=== PATIENT | female | born 1995 | race Caucasian/White ===

== ENCOUNTER 2020-05-14 15:00 | Outpatient (REF) | payer MEDICAID, SELFPAY ==
[2020-05-14 15:04] LABS: Abs Immature Grans 0.04 10^3/uL (0.0-0.06); Absolute Basophil Count 0.04 10^3/uL (0.0-0.2); Absolute Eosinophil Count 1.97 10^3/uL (0.0-0.7); Absolute Lymphocyte Count 0.58 10^3/uL (1.2-3.4); Absolute Monocyte Count 0.56 10^3/uL (0.1-0.8); Absolute Neutrophil Count 3.49 10^3/uL (1.2-6.7); Basophils % 0.6; Eosinophils % 29.5; HCT 30.7 % (36.0-46.0); HGB 10.3 g/dL (11.2-15.7); Immature Grans % 0.6; Lymphocytes % 8.7; MCH 27.9 pg (27.0-33.0); MCHC 33.6 % (32.0-36.0); MCV 83.2 fL (80-95); MPV 10.5 fL (8.0-11.0); Monocytes % 8.4; Neutrophils % 52.2; Nucleated RBC 0 %; Platelet Count 269 10^3/uL (130-400); RBC 3.69 10^6/uL (3.93-5.22); RDW 14.4 % (11.7-14.6); RDW-SD 43.2 fL; WBC 6.68 10^3/uL (4.4-10.8)
[2020-05-14 15:39] LABS: ALT 16 U/L (14-59); AST 24 U/L (15-37); Albumin 2.1 g/dL (3.4-5.0); Alkaline Phosphatase 99 U/L (46-116); Anion Gap 5.6 mmol/L (3-11); BUN 11 mg/dL (7-18); Bilirubin, Total 0.4 mg/dL (0.2-1.0); CO2 30.4 mmol/L (21.0-32.0); CREATININE 0.62 mg/dL (0.55-1.02); Calcium 8.9 mg/dL (8.5-10.1); Chloride 99 mmol/L (98-107); Glucose 94 mg/dL (74-106); Potassium 3.1 mmol/L (3.5-5.1); Sodium 135 mmol/L (136-145)
== END 2020-05-14 15:20 ==
LOC: LBN 15:00
PROVIDERS: PCP Family Medicine; Visit Provider Family Medicine
DX: J85.2 Abscess of lung without pneumonia (principal)
CPT/HCPCS: 80053; 85025

== ENCOUNTER 2024-02-18 19:06 | Outpatient (REF) | payer MEDICAID, SELFPAY ==
[2024-02-18 19:38] LABS: Abs Immature Grans 0.02 10^3/uL (0.0-0.06); Absolute Basophil Count 0.02 10^3/uL (0.0-0.2); Absolute Eosinophil Count 0.13 10^3/uL (0.0-0.7); Absolute Lymphocyte Count 0.71 10^3/uL (1.2-3.4); Absolute Monocyte Count 0.51 10^3/uL (0.1-0.8); Absolute Neutrophil Count 1.62 10^3/uL (1.2-6.7); Basophils % 0.7 %; Eosinophils % 4.3 %; HCT 31.7 % (36.0-46.0); HGB 9.6 g/dL (11.2-15.7); Immature Grans % 0.7 %; Lymphocytes % 23.6 %; MCH 25.2 pg (27.0-33.0); MCHC 30.3 % (32.0-36.0); MCV 83 fL (80-95); MPV 10.2 fL (8.0-11.0); Monocytes % 16.9 %; Neutrophils % 53.8 %; Platelet Count 235 10^3/uL (130-400); RBC 3.81 10^6/uL (3.93-5.22); RDW 20.1 % (11.7-14.6); RDW-SD 60.9 fL; WBC 3.01 10^3/uL (4.4-10.8)
[2024-02-18 19:54] LABS: Anisocytosis 1+
[2024-02-18 20:28] LABS: ALT 13 U/L (14-59); AST 22 U/L (15-37); Albumin 2.3 g/dL (3.4-5.0); Alkaline Phosphatase 42 U/L (46-116); Anion Gap 7.2 mmol/L (3-11); BUN 19 mg/dL (7-18); Bilirubin, Total 0.18 mg/dL (0.2-1.0); CO2 27.8 mmol/L (21.0-32.0); CREATININE 0.8 mg/dL (0.55-1.02); Calcium 8.4 mg/dL (8.5-10.1); Chloride 103 mmol/L (98-107); Estimated GFR 100.96 (mL/min/1.73m2); Glucose 78 mg/dL (74-106); Magnesium 1.9 mg/dL (1.8-2.4); PHOSPHORUS 4.6 mg/dL (2.6-4.7); Potassium 4.3 mmol/L (3.5-5.1); Sodium 138 mmol/L (136-145); Total Protein 6.2 g/dL (6.4-8.2)
[2024-02-18 21:09] LABS: Triglyceride 163 mg/dL (<150)
[2024-02-22 09:15] LABS: Prealbumin 22 mg/dL (20-40)
== END 2024-02-18 19:07 | disposition home or self-care (01) ==
LOC: LBN 19:06
PROVIDERS: PCP Family Medicine; Visit Provider Student in an Organized Health Care Education/Training Program
DX: K50.014 Crohn's disease of small intestine with abscess (principal)
CPT/HCPCS: 80053; 83735; 84100; 84134; 84478; 85025

== ENCOUNTER 2024-04-08 17:10 | Outpatient (REF) | payer MEDICAID, SELFPAY ==
[2024-04-08 17:41] LABS: Anion Gap 11.4 mmol/L (3-11); BUN 26 mg/dL (7-18); CO2 25.6 mmol/L (21.0-32.0); CREATININE 0.7 mg/dL (0.55-1.02); Calcium 9.1 mg/dL (8.5-10.1); Chloride 100 mmol/L (98-107); Estimated GFR 118.51 (mL/min/1.73m2); Glucose 123 mg/dL (74-106); Magnesium 1.7 mg/dL (1.8-2.4); PHOSPHORUS 3.5 mg/dL (2.6-4.7); Potassium 4.2 mmol/L (3.5-5.1); Sodium 137 mmol/L (136-145)
== END 2024-04-08 17:11 | disposition home or self-care (01) ==
LOC: LBN 17:10
PROVIDERS: PCP Family Medicine; Visit Provider Colon & Rectal Surgery
DX: K50.014 Crohn's disease of small intestine with abscess (principal)
CPT/HCPCS: 80048; 83735; 84100

== ENCOUNTER 2024-04-11 18:17 | Outpatient (REF) | payer MEDICAID, SELFPAY ==
[2024-04-11 15:41] LABS: Abs Immature Grans 0.02 10^3/uL (0.0-0.06); Absolute Basophil Count 0.03 10^3/uL (0.0-0.2); Absolute Eosinophil Count 0.14 10^3/uL (0.0-0.7); Absolute Lymphocyte Count 0.56 10^3/uL (1.2-3.4); Absolute Monocyte Count 0.57 10^3/uL (0.1-0.8); Absolute Neutrophil Count 4.14 10^3/uL (1.2-6.7); Basophils % 0.5 %; Eosinophils % 2.6 %; HCT 33.4 % (36.0-46.0); HGB 10.2 g/dL (11.2-15.7); Immature Grans % 0.4 %; Lymphocytes % 10.3 %; MCH 24.5 pg (27.0-33.0); MCHC 30.5 % (32.0-36.0); MCV 80 fL (80-95); MPV 10.5 fL (8.0-11.0); Monocytes % 10.4 %; Neutrophils % 75.8 %; Platelet Count 286 10^3/uL (130-400); RBC 4.16 10^6/uL (3.93-5.22); RDW 15.7 % (11.7-14.6); RDW-SD 45.7 fL; WBC 5.46 10^3/uL (4.4-10.8)
[2024-04-11 15:52] LABS: ALT 47 U/L (14-59); AST 25 U/L (15-37); Albumin 3.3 g/dL (3.4-5.0); Alkaline Phosphatase 138 U/L (46-116); Anion Gap 10.9 mmol/L (3-11); BUN 25 mg/dL (7-18); Bilirubin, Total 0.23 mg/dL (0.2-1.0); CO2 24.1 mmol/L (21.0-32.0); CREATININE 0.7 mg/dL (0.55-1.02); Calcium 8.9 mg/dL (8.5-10.1); Chloride 102 mmol/L (98-107); Estimated GFR 118.51 (mL/min/1.73m2); Glucose 142 mg/dL (74-106); Magnesium 1.5 mg/dL (1.8-2.4); Sodium 137 mmol/L (136-145); Total Protein 7.6 g/dL (6.4-8.2)
== END 2024-04-11 18:18 | disposition home or self-care (01) ==
LOC: LBN 18:17
PROVIDERS: PCP Family Medicine; Visit Provider Family Medicine
DX: K50.018 Crohn's disease of small intestine with other complication (principal)
CPT/HCPCS: 80053; 83735; 84100; 85025